=== PATIENT | female | born 1990 | race Caucasian/White ===

== ENCOUNTER 2016-03-17 06:02 | Observation (INO) | payer OTHER ==
[~2016-03-17 06:02] MED LIST: Buffered Lidocaine 1% SYR 3ML* 3 ML/SYR SYRINGE INTRADERM ONE; Famotidine IV* 10 MG/ML 2 ML (20 mg) IV ONE; Morphine INJ* 2 MG/ML 1 ML CARPUJECT IV PRN; PROCHLORPERAZINE INJ 5 MG/ML 2 ML VIAL IV PRN; fentaNYL* 50 MCG/ML 2 ML VIAL (100 MCG VIAL) IV PRN; oxyCODONE/Acetamin 5/325 MG* TAB PO PRN
[2016-03-17] MEDS ORDERED: Famotidine IV* 10 MG/ML 2 ML (20 mg) ONE (06:09)
[2016-03-17] MEDS ORDERED: Clindamycin 900 MG IVPREMIX(* 900 MG/50 ML SDV IV ONE (06:09)
[2016-03-17] MEDS ORDERED: Buffered Lidocaine 1% SYR 3ML* 3 ML/SYR SYRINGE ONE (06:10)
[2016-03-17] MEDS ORDERED: Thrombin 5,000 UNITS* 1 APPLIC KIT - topical use - TOPICAL ONE (07:11)
[2016-03-17] MEDS ORDERED: Lidocain 1% EPI 1:100,000 * 30 ML MDV ONE (07:11)
[2016-03-17] MEDS ORDERED: Bacitracin IV* 50,000 UNITS INJ ONE (07:11)
[2016-03-17] MEDS ORDERED: Atracurium* 10 MG/ML 10 ML VIAL ONE (07:20)
[2016-03-17] MEDS ORDERED: fentaNYL* 50 MCG/ML 5 ML VIAL (250 MCG VIAL) ONE (07:20)
[2016-03-17] MEDS ORDERED: KETAMINE HCL* 50 MG/ML 10 ML VIAL ONE (07:20)
[2016-03-17] MEDS ORDERED: Midazolam* 1 MG/ML 5 ML VIAL (5 MG) ONE (07:20)
[2016-03-17] MEDS ORDERED: Propofol* 10 MG/ML 20 ML BTL IV PUSH ONE (07:59)
[2016-03-17] MEDS ORDERED: PROCHLORPERAZINE INJ 5 MG/ML 2 ML VIAL ONE (07:59)
[2016-03-17] MEDS ORDERED: Neostigmine Methylsulfate* 2 MG/2 ML SYRINGE ONE (07:59)
[2016-03-17] MEDS ORDERED: Glycopyrrolate IV* 0.2 MG/ML 1 ML VIAL ONE (07:59)
[2016-03-17] MEDS ORDERED: Dexamethasone IV* 4 MG/ML 1 ML (4 MG) ONE (07:59)
[2016-03-17] MEDS ORDERED: Ondansetron INJ* 2 MG/ML VIAL ONE (07:59)
[2016-03-17] MEDS ORDERED: Phenylephrine IV* 40 MCG/ML 10 ML SYRINGE ONE (08:00)
[2016-03-17] MEDS ORDERED: Lidocaine 2% PF* 10 ML AMP ONE (08:00)
[2016-03-17] MEDS ORDERED: EPHEDrine (Pressors)* 50 MG/ML VIAL ONE (08:10)
[2016-03-17] MEDS ORDERED: Magnesium Hydroxide LIQ* 30 ML UDC PO PRN (08:39)
[2016-03-17] MEDS ORDERED: Ondansetron INJ* 2 MG/ML VIAL IV PRN (08:39)
[2016-03-17] MEDS ORDERED: Acetaminophen TAB* 325 MG PO PRN (08:39)
[2016-03-17] MEDS ORDERED: oxyCODONE/Acetamin 5/325 MG* TAB ONE ×2 (09:22)
--- NOTE | 2016-03-17 10:33 | RAD ---
HISTORY: Lumbar discectomy COMPARISONS: MRI dated February 25, 2016 VIEWS: 1 , single lateral view of the lumbar spine performed intraoperatively for localization during spinal surgery FINDINGS: A single portable crosstable film performed at 7:08 AM demonstrates a metallic forceps opposite of L4-L5 counting from L5 as the last lumbar type vertebral body. IMPRESSION: LIMITED PORTABLE VIEW OF THE LUMBAR SPINE FOR LOCALIZATION DURING SPINAL SURGERY
[2016-03-17] MEDS: HYDROcodone/ACETAMIN 5-325 MG* 1 TAB PO PRN ×2 (12:22→20:48)
[2016-03-18] MEDS: HYDROcodone/ACETAMIN 5-325 MG* 1 TAB PO PRN (04:23)
--- NOTE | 2016-03-18 07:52 | PN ---
Progress Note - Progress Note SOAP: Subjective: [This patient is s/p lumbar discectomy L4-5 on the left POD #1. She is feeling well. Preoperative pain in the left lower extremity is improving. She reports continued weakness of the left foot. She is ambulating independently. She is eating, drinking and voiding without difficulty. No headache. Pain is well controlled.] Objective: [ Vital Signs: Temp Pulse Resp BP Pulse Ox 97.9 F 84 18 122/58 98 03/18/16 04:18 03/18/16 04:18 03/18/16 06:23 03/18/16 04:18 03/18/16 04:18 General: Alert and oriented. Neuro: Decreased strength of left foot; unchanges from pre-op. Sensory intact. Extremities: Full ROM. ] Assessment: [This patient is following a satisfactory post-operative course after lumbar discectomy L4-5 on the left. ] Plan: [1. Discharge home today. 2. Discharge instructions including wound care and activity level were discussed with the patient. ]
[2016-03-18 08:01] VITALS: BP 119/61
--- NOTE | 2016-03-18 10:30 | OP ---
DATE OF OPERATION: 03/17/16 - ROOM #351 DATE OF : 88 SURGEON: Fletcher Hunt MD FIRE EXTINGUISHER TECHNICIAN: CHALO Streeter ANESTHESIOLOGIST: Hilario Preston MD ANESTHESIA: General. PRE-OP DIAGNOSIS: Herniated nucleus pulposus, L4-5, on the left. POST-OP DIAGNOSIS: Herniated nucleus pulposus, L4-5, on the left. OPERATIVE PROCEDURE: Lumbar diskectomy, L4-5, on the left with microdissection. DESCRIPTION OF OPERATION: After satisfactory general anesthesia was obtained, the patient was placed on the operating room table in the prone position with the chest supported on the Medardo frame and the back slightly flexed. The lumbar region was then clipped, prepped, and draped in a sterile manner for lumbar laminectomy and a skin incision outlined from L4 to L5. This incision was infiltrated with 1% Xylocaine with epinephrine after which it was turned down sharply to the level of the lumbar fascia. The fascia was divided along the spinous processes of L4 and L5 and the paraspinal musculature stripped away from these posterior elements using the periosteal elevator and monopolar cautery. An intraoperative x-ray was obtained verifying proper interspace localization after which a partial hemilaminectomy was carried out by removing the inferior aspect of the L4 lamina and medial aspect of the facet complex, utilizing a combination of the Midas Adelfo drill and Kerrison rongeurs. This was carried inferiorly until the L5 nerve root could be seen exiting the foramen. At this point of the procedure, the operating microscope was brought into the field and the remainder of the procedure done under microscopic visualization. Projecting beneath the dura was a large subcapsular disk extrusion. The opening in the posterior longitudinal ligament was enlarged and one very large fragment was removed from beneath the dura. The disk space itself was then cleared of any loose disk material using pituitary forceps and curettes. At the conclusion of the decompression, the L5 nerve root was noted to be free in its course. After assuring adequate hemostasis, the wound was thoroughly irrigated after which the fascia was reapproximated with 0 Vicryl suture. The subcutaneous tissue was closed with 3-0 Vicryl suture and the skin closed with skin clips. The estimated blood loss was less than 50 cc and the final sponge, padding, and needle counts were correct. The patient was taken to the recovery room extubated and in stable condition. [id number]/[facility] #: [id number] [facility]
--- NOTE | 2016-03-18 23:47 | DS ---
DISCHARGE SUMMARY: DATE OF ADMISSION: 03/17/16 DATE OF DISCHARGE: 03/18/16 DISCHARGE DIAGNOSIS: Herniated nucleus pulposus, L4-5 on the left. SPECIAL PROCEDURE: Lumbar diskectomy, L4-5 on the left. HOSPITAL COURSE: This 25-year-old female was seen in office with significant signs and symptoms of lumbar radiculopathy on the left. She failed to improve with conservative treatment and was admitted at this time for an elective surgical intervention. On the day of admission, she was taken to surgery, where under general anesthesia, a lumbar diskectomy at L4-5 on the left operation was carried out. Postoperatively, she was feeling well. She was ambulating independently. She was eating, drinking, and voiding without difficulty. Preoperative symptoms were improving. Pain was well controlled with oral pain medications. DISCHARGE DISPOSITION: On the first postoperative day, she was discharged home to the care of her family. DISCHARGE INSTRUCTIONS: Discharge instructions including wound care and activity level were provided. DISCHARGE MEDICATIONS: Include Enterprise 5/325 mg 2 tablets every 4 hours as needed for pain. FOLLOWUP: She will be seen in office in 7 to 10 days for a followup and staple removal. CHALO BECKER [id number]/[facility] #: [id number] LINO
== END 2016-03-18 10:00 | disposition home or self-care (01) ==
LOC: OR 06:02 → SSU 08:39
PROVIDERS: ADMIT Neurological Surgery; ATTEND Neurological Surgery
PROC: 01NB0ZZ Release Lumbar Nerve, Open Approach (ICD-10-PCS; principal; 2016-03-17 07:45)
DX: M51.16 Intervertebral disc disorders with radiculopathy, lumbar region (principal); Z88.0 Allergy status to penicillin; Z79.899 Other long term (current) drug therapy
CPT/HCPCS: 72100; 88304; A9270-GY; G0378; J0780; J1100; J2001; J2250; J2405; J2704; J3010

== ENCOUNTER 2016-12-13 10:00 | Emergency (ER) | payer BC, OTHER ==
[2016-12-13 11:09] VITALS: BP 152/94
--- NOTE | 2016-12-13 11:13 | UC ---
Back Pain HPI - HPI Summary HPI Summary: 26 YEAR OLD FEMALE PRESENTS WITH COMPLAINS OF LOWER BACK PAIN WITH NO TRAUMA. - History of Current Complaint Chief Complaint: UCGeneralIllness Stated Complaint: LOWER BACK PAIN Time Seen by Provider: 12/13/16 11:11 Hx Obtained From: Patient Hx Last Menstrual Period: 11/15/16 Onset/Duration: Sudden Onset Severity Initially: Moderate Severity Currently: Moderate Pain Scale Used: 0-10 Numeric - 5 Character: Sharp Aggravating Factor(s): Movement Alleviating Factor(s): Rest Associated Signs And Symptoms: Positive: Negative - Allergies/Home Medications Allergies/Adverse Reactions: Allergies Allergy/AdvReac Type Severity Reaction Status Date / Time Amoxicillin Allergy Intermediate Rash Verified 12/13/16 11:09 PMH/Surg Hx/FS Hx/Imm Hx Previously Healthy: Yes - Surgical History Surgical History: None Surgery Procedure, Year, and Place: 03/2016- Repair Rutured Disc in low back - Family History Known Family History: Positive: None Negative: Hypertension, Diabetes Family History: no cardiovascular issues in family lineage - Social History Alcohol Use: Occasionally Alcohol Amount: Monthly Substance Use Type: None Smoking Status (MU): Never Smoked Tobacco Have You Smoked in the Last Year: No - Immunization History Most Recent Influenza Vaccination: 12/10/16 Review of Systems Constitutional: Negative Skin: Negative Eyes: Negative ENT: Negative Respiratory: Negative Cardiovascular: Negative Gastrointestinal: Negative Genitourinary: Negative Motor: Negative Neurovascular: Negative Musculoskeletal: Negative Neurological: Negative Psychological: Negative All Other Systems Reviewed And Are Negative: Yes Physical Exam Triage Information Reviewed: Yes Vital Signs: Initial Vital Signs Temp 35.8 C 12/13/16 11:02 Pulse 83 12/13/16 11:02 Resp 18 12/13/16 11:02 BP 152/94 12/13/16 11:02 Pulse Ox 100 12/13/16 11:02 Vital Signs Reviewed: Yes Eye Exam: Normal ENT Exam: Normal Dental Exam: Normal Neck exam: Normal Neck: Positive: 1 Respiratory Exam: Normal Cardiovascular Exam: Normal Abdominal Exam: Normal Musculoskeletal: Positive: Other: - LOWER BACK PAIN Neurological Exam: Normal Psychological Exam: Normal Skin Exam: Normal Back Pain Course/Dx - Differential Dx/Diagnosis Provider Diagnoses: LOWER SI PAIN. LOWER BACK PAIN Discharge - Discharge Plan Condition: Stable Disposition: HOME Prescriptions: Sulfamethox/Trimethoprim DS* [Bactrim DS 800/160 TAB*] 1 tab PO BID #10 tab Patient Education Materials: Urinary Tract Infection in Women (ED), Back Pain ( ED) Referrals: No Primary Care Phys,NOPCP [Primary Care Provider] -
== END 2016-12-13 11:40 | disposition home or self-care (01) ==
LOC: UCEAST 10:00
DX: M54.40 Lumbago with sciatica, unspecified side (principal); Z32.02 Encounter for pregnancy test, result negative; Z88.3 Allergy status to other anti-infective agents
CPT/HCPCS: 81003; 84702; 87086; 99212; G0463

== ENCOUNTER → 2018-03-31 16:23 | Day surgery (SDC) | payer BC ==
--- NOTE | 2018-03-31 21:44 | PRO ---
LUMBAR PUNCTURE PROCEDURE NOTE: DATE OF PROCEDURE: 03/31/18 - SDS PREOPERATIVE DIAGNOSIS: Pseudotumor cerebri. POSTOPERATIVE DIAGNOSIS: Pseudotumor cerebri. INDICATION: Diagnostic and therapeutic. DESCRIPTION OF PROCEDURE: Informed consent was obtained. Time-out was performed by the bedside nurse, Rosy Dan, at 1950. A female diversional therapist was present which included Nazanin's friend as well as the bedside nurse, Ms. Dan. Risks of the procedure were discussed including infection, bleeding, pain and headache. Written consent was obtained. Under sterile condition, the patient was positioned in the left lateral decubitus position in a semi- position. Betadine solution and sterile drapes were utilized. A 22-gauge 3.5-inch spinal needle was inserted at L3- L4 interspace. FINDINGS: A 20 cc of clear fluid was obtained. Opening pressure was 37 cm H20 pressure. Closing pressure was 18 cm H20 pressure. COMPLICATIONS: None. CONDITION: Good. PLAN: Obtain CSF analysis for cell count, differential, cryptococcal antigen, protein, and glucose. The patient was started on acetazolamide 250 mg twice daily. [id number]/[facility] #: [id number] [facility]
== END | disposition home or self-care (01) ==
LOC: OR 16:23
PROVIDERS: ATTEND Psychiatry & Neurology Neurology with Special Qualifications in Child Neurology
DX: G93.2 Benign intracranial hypertension (principal)

== ENCOUNTER 2018-03-31 16:52 | Emergency (ER) | payer BC ==
--- NOTE | 2018-03-31 17:09 | ED ---
Headache - HPI Summary HPI Summary: This patient is a 27 year old female who is presenting to the emergency department after being sent by Dr. Begum for a spinal tap. The patient states she has a headache that began 03-22-18 that she rates 8/10. She also c/o blurred vision. She denies cough, fever, cold sx. She had an MRI and non contrast MRV as an outpatient and she was sent in for a spinal tap to manage the next step. The plan is to go home if her pressure is normal with steroid and if it is not admit with further work up. Dr. Almazan saw the patient on arrival - History Of Current Complaint Chief Complaint: EDHeadache Stated Complaint: HEADACHE Time Seen by Provider: 03/31/18 16:55 Hx Obtained From: Patient Hx Last Menstrual Period: 11/15/16 Onset/Duration: Still Present Initially Headache Was: Initial Pain Scale(0-10)= - 8 Currently Pain Is: Current Pain Scale(0-10)= - 8 Timing: Constant Associated Signs And Symptoms: Negative - fever and cold sx, Other (Noted In Comments) - blurred vision - Allergies/Home Medications Allergies/Adverse Reactions: Allergies Allergy/AdvReac Type Severity Reaction Status Date / Time amoxicillin Allergy Intermediate Rash Verified 03/31/18 16:53 Home Medications: Home Medications Propranolol TAB* [Inderal TAB*] 20 mg PO BEDTIME 03/31/18 [History Confirmed ] busPIRone TAB* [Buspar TAB*] 10 mg PO TID PRN 03/31/18 [History Confirmed ] PMH/Surg Hx/FS Hx/Imm Hx Endocrine/Hematology History: Denies: Hx Diabetes Cardiovascular History: Reports: Hx Hypertension Denies: Hx Coronary Artery Disease, Hx Pacemaker/ICD Respiratory History: Denies: Hx Asthma History: Reports: Hx Kidney Infection - HX OF - NONE RECENTLY Sensory History: Reports: Hx Contacts or Glasses - CONTACTS, INSTRUCTED TO WEAR GLASSES DAY OF SURGERY Denies: Hx Hearing Aid Opthamlomology History: Reports: Hx Contacts or Glasses - CONTACTS, INSTRUCTED TO WEAR GLASSES DAY OF SURGERY Psychiatric History: Denies: Hx Oppositional [place] Disorder, Hx Panic Disorder - Surgical History Surgery Procedure, Year, and Place: 03/2016- Repair Rutured Disc in low back Infectious Disease History: No Infectious Disease History: Denies: Traveled Outside the [place] in Last 30 Days - Family History Known Family History: Negative: Hypertension, Diabetes Family History: no cardiovascular issues in family lineage - Social History Alcohol Use: Occasionally Alcohol Amount: Monthly Substance Use Type: Reports: None Smoking Status (MU): Never Smoked Tobacco Have You Smoked in the Last Year: No Review of Systems Constitutional: Negative - cold sx Negative: Fever Positive: Blurred Vision Negative: Cough Positive: Headache All Other Systems Reviewed And Are Negative: Yes Physical Exam - Summary Physical Exam Summary: Appearance: The patient is well-nourished in no acute distress and in no acute pain. Skin: The skin is warm and dry and skin color reflects adequate perfusion. HEENT: The head is normocephalic and atraumatic. The pupils are equal and reactive. The conjunctivae are clear and without drainage. Nares are patent and without drainage. Mouth reveals moist mucous membranes and the throat is without erythema and exudate. The external ears are intact. The ear canals are patent and without drainage. The tympanic membranes are intact. Neck: The neck is supple with full range of motion and non-tender. There are no carotid bruits. There is no neck vein distension. Respiratory: Chest is non-tender. Lungs are clear to auscultation and breath sounds are symmetrical and equal. Cardiovascular: Heart is regular rate and rhythm. There is no murmur or rub auscultated. There is no peripheral edema and pulses are symmetrical and equal. Abdomen: The abdomen is soft and non-tender. There are normal bowel sounds heard in all four quadrants and there is no organomegaly palpated. Musculoskeletal: There is no back tenderness noted. Extremities are non-tender with full range of motion. There is good capillary refill. There is no peripheral edema or calf tenderness elicited. Neurological: Patient is alert and oriented to person, place and time. The patient has symmetrical motor strength in all four extremities. Cranial nerves are grossly intact. Deep tendon reflexes are symmetrical and equal in all four extremities. Psychiatric: The patient has an appropriate affect and does not exhibit any anxiety or depression. Triage Information Reviewed: Yes Vital Signs On Initial Exam: Initial Vitals Temp Pulse Resp BP Pulse Ox 97.4 F 87 16 184/116 96 03/31/18 16:53 03/31/18 16:53 03/31/18 16:53 03/31/18 16:53 03/31/18 16:53 Vital Signs Reviewed: Yes Diagnostics - Vital Signs Vital Signs Temp Pulse Resp BP Pulse Ox 03/31/18 16:58 151/90 03/31/18 16:53 97.4 F 87 16 184/116 96 - Laboratory Result Diagrams: 03/31/18 16:31 03/31/18 16:31 Lab Statement: Any lab studies that have been ordered have been reviewed, and results considered in the medical decision making process. Headache Course/Dx - Diagnoses Provider Diagnoses: Idiopathic intracranial hypertension Discharge - Sign-Out/Discharge Documenting (check all that apply): Patient Departure - Discharge Plan Condition: Good Disposition: HOME Patient Education Materials: Idiopathic Intracranial Hypertension (ED) Referrals: Chirag Almazan MD [Medical Doctor] - Additional Instructions: Take the medication Dr. Almazan prescribed as directed and followup with him per his instructions. - Billing Disposition and Condition Condition: GOOD Disposition: Home - Attestation Statements Document Initiated by Scribe: Yes Documenting Scribe: Orion Gibbs Provider For Whom Koby is Documenting (Include Credential): Deniz Oliver MD Scribe Attestation: Orion Garcia , scribed for Deniz Oliver MD on 04/01/18 at 1034. Scribe Documentation Reviewed: Yes Provider Attestation: The documentation as recorded by the Orion amaro accurately reflects the service I personally performed and the decisions made by Deniz danielle MD Status of Scribe Document: Viewed
--- OUTSIDE RECORDS SUMMARY | 2018-03-31 17:09 | XMS REPORT | Continuity of Care Document ---
:1990 External Reference #:[id number] Author Name Marquez Vick M.D. Address [address] [place] [address] Care Team Providers Name Role Phone Deana Gage M.D. Primary Care Physician Unavailable Payers Type Date Identification Numbers Payment Provider Subscriber Policy Number: [id number] [facility] Nazanin Medley PayID: [id number] [address] [address] [place] [address] Policy Number: [id number] [employer] Nazanin Medley PayID: [id number] [address] [place] [address] Advance Directives Description No Information Available Problems Date Description Provider Status Onset: Essential hypertension Active Onset: Anxiety Active Onset: Seasonal allergy Active Onset: 03/30/2018 Visual field defect Marquez Vick M.D. Active Onset: 03/30/2018 Other migraine, intractable, Marquez Vick M.D. Active without status migrainosus Onset: 01/03/2018 Visual disturbance Delfina Max O.D. Active Onset: 01/01/2018 Optic disc edema Ora Wei O.D. 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 ETOH Use Rarely consumes alcohol Tobacco Use Start: Unknown Patient has never smoked Recreational Drug Use Denies Drug Use Smoking Status Reviewed: 03/30/18 Patient has never smoked Allergies, Adverse Reactions, Alerts Date Description Reaction Status Severity Comments 01/01/2018 Amoxicillin Active Medications Medication Date Status Form Strength Qnty SIG Indications Ordering Provider Propranolol HCL 00/0 Active Tablets 20mg every Unknown 000 night Fluoxetine HCL /0 Active Capsules 20mg every Unknown (PMDD) 000 night Hydroxyzine HCL 000 Active Tablets 25mg as needed Unknown 000 Multivitamin 00000 Active Tablets daily Unknown Adult 000 Immunizations Description No Information Available Vital Signs Description No Information Available Results Description No Information Available Procedures Date Code Description Status 01/03/2018 46010 Scanning Computerized Ophthalmic Diagnostic Imag Posterior Completed Seg On 01/03/2018 43035 Visual Field Exam Extended Completed 01/01/2018 98522 New Patient Comprehensive Exam Completed Encounters Type Date Location Provider Dx Diagnosis Office Visit 01/03/2018 Delfina Hughes H53.8 Other visual 11:20a , pc Lali Max disturbances Plan of Treatment 03/30/2018 - Marquez Vick M.D.H47.10 Unspecified papilledemaNew Xrays:Mra or MRV Head W/O Contrast, Ordered: 03/30/18MRI Brain W/O Contrast, Ordered: Comments:Smoking can increase the risk of developing or worsening any eye related disease, as well as affect your overall health. If you are a smoker, we strongly recommend that you quit.If you are not a smoker, we strongly recommend that you do not start. I WILL ORDER AN MRI TO LOOK INTO YOUR VOCNSVWDW26.819 Other migraine, intractable, without status [id number] Other localized visual field defect, bilateralComments:You have a visual field defect in both eyes. Further testing is often required to properly diagnose the cause of this. Please follow all of Dr. Vick's instructions and keep all follow up appointments.
--- OUTSIDE RECORDS SUMMARY | 2018-03-31 17:09 | XMS REPORT | Continuity of Care Document ---
:1990 External Reference #:[id number] Author Name Deana Gage M.D. Address [address] [place] [address] Care Team Providers Name Role Phone Deana Gage M.D. Care Team Information Soa Engineer Unavailable Deana Gage M.D. Primary Care Physician Unavailable Payers Type Date Identification Numbers Payment Provider Subscriber Effective: Policy Number: [id number] /BS Of [employer]ICE Medley 2016 PayID: [id number] [place] [id number] Advance Directives Description No Information Available Problems Date Description Provider Status Onset: 03/03/2017 Moderate major depression, single Deana Gage M.D. Active episode Onset: 03/15/2017 Obesity Deana Gage M.D. Active Onset: 06/02/2017 Essential hypertension Deana Gage M.D. Active Onset: 06/02/2017 Liver function tests abnormal Deana Gage M.D. Active Onset: 03/02/2018 Impaired fasting glycaemia Deana Gage M.D. Active Onset: 03/15/2017 Elevated blood-pressure reading without Deana Gage M.D. Inactive diagnosis of hypertension Inactive: 06/02/2017 Onset: 11/18/2017 Acute sinusitis Christopher Yi M.D. Resolved Resolved: 03/07/2018 Onset: 11/18/2017 Allergic rhinitis Christopher Yi M.D. Resolved Resolved: 03/07/2018 Family History Date Family Member(s) Problem(s) Comments Father Hyperlipidemia Father Gastroesophageal Reflux Disease (GERD) Mother Irritable Bowel Syndrome First Sister Lyme Disease Paternal Grandfather Lung Cancer Paternal Grandmother Breast Cancer Paternal Grandmother [place] Paternal Grandmother Fatty liver Maternal Grandfather Asthma Maternal Grandmother Breast Cancer Social History Type Date Description Comments Sex Unknown Marital Status Single Lives With Alone Occupation [employer] Tobacco Use Start: Unknown Never Smoked Cigarettes Smoking Status Reviewed: 10/05/17 Never Smoked Cigarettes ETOH Use Social Alcohol Exercise Type/Frequency Does not exercise Allergies, Adverse Reactions, Alerts Date Description Reaction Status Severity Comments 03/03/2017 Amoxicillin Active hives Medications Medication Date Status Form Strength Qnty SIG Indications Ordering Provider Acetaminophen-Code 03/29 Active Tablets 300-30mg 30tab 1-2 tab by R5Juany Leblanc ine #3 s mouth Evangeline, every 6 M.D. hours as needed Rizatriptan 03/29 Active Tablets 10mg 15tab 1 tab by R51 Deana Benzoate /2018 Dispers s mouth at Evangeline, onset M.D. migraine can repeat 2 hours later monthly max 15 Buspirone HCL 03/02 Active Tablets 10mg 180ta 1 tab bid bs Evangeline, M.D. Bupropion HCL ER 02/07 Active Tablets 100mg 90tab take one () ER 12HR s by mouth Evangeline, once daily M.D. Propranolol HCL 12/28 Active Tablets 20mg 90tab 1 tab by I10 s mouth Evangeline, every day M.D. Montelukast Sodium 11/18 Active Tablets 10mg 30tab 1 by mouth J30.2 Christopher T. s every day Midura, at for M.D. allergies Vitamin D 00 Active Tablets 2000Unit 1 by mouth Unknown /0000 every day Buspirone HCL 02/07 Hx Tablets 5mg 90tab 1 tab by s mouth Evangeline, - three M.D. 03/02 times day as needed Fluoxetine HCL 02/07 Hx Capsules 10mg 30cap 4 tabs x 3 F32.1 s days, then Evangeline, - 3 tabs x 3 M.D. 03/02 days, 2 tabs x 3 days then 1 tab x 3 days then stop Fluoxetine HCL 12/28 Hx Capsules 20mg 90cap 1 by mouth F32.1 s every day Evangeline, - M.D. 02/07 Fluoxetine HCL 12/14 Hx Capsules 10mg 30cap 1 by mouth F32.1 s every day Evangeline, - M.D. 12/28 Hydroxyzine HCL 12/14 Hx Tablets 25mg 60tab 1-2 tabs F32.1 s at bedtime Evangeline, - as needed M.D. 02/07 Levofloxacin 11/18 Hx Tablets 500mg 10tab 1 by mouth J01.90 Christopher T. s every day Kd, - M.D. 12/14 Work Note 11/18 Hx seen today Christopher T. for Kd, - medical M.D. 12/14 [facility] and should not return to work today or tomorrow. 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 09/01 twice a day Lisinopril 05/15 Hx Tablets 20mg 30tab 1 by mouth I10 s every day Evangeline, - M.D. 09/01 Amlodipine 05/05 Hx Tablets 5mg 30tab 1 by mouth Deana Besylate s every day Evangeline, - M.D. 05/15 Bupropion HCL ER 05/03 Hx Tablets 150mg 30tab take 1 Ashely (XL) ER 24HR s tablet by [facility], - mouth Afnp-C 11/04 every Bupropion HCL ER 04/20 Hx Tablets 300mg 90tab 1 by mouth F32.1 Deana (XL) ER 24HR s every day Evangeline, - M.D. 05/03 Amlodipine 04/15 Hx Tablets 10mg 30tab 1 by mouth Deana Besylate s every day Evangeline, - M.D. 04/19 Hydrochlorothiazid 03/15 Hx Tablets 12.5mg 90tab 1 by mouth Deana e s every day Evangeline, - M.D. 04/15 Bupropion HCL ER 03/03 Hx Tablets 150mg 30tab 1 by mouth F32.1 Deana (XL) ER 24HR s every day Evangeline, - M.D. 04/20 Vitamin B12 00/00 Hx Tablets 1000mcg 1 by mouth Unknown /0000 ER every day - 04/19 Cranberry 00 Hx Tablets 450mg 1 tab by Unknown /0000 mouth - Daily 10/05 Medications Administered in Office Medication Date Status Form Strength Qnty SIG Indications Ordering Provider Brief Administered Injection Deana Emotional/Beha 017 lucy Gage M.D. W/ Scoring Doc Per Standard Inst Immunizations Description No Information Available Vital Signs Date Vital Result Comment 03/29/2018 11:08am BP Systolic 140 mmHg BP Diastolic 90 mmHg Heart Rate 68 /min Body Temperature 97.7 F Respiratory Rate 16 /min 03/02/2018 11:03am BP Systolic 150 mmHg BP Diastolic 82 mmHg BP Systolic Recheck 130 mmHg BP Diastolic Recheck 80 mmHg Heart Rate 64 /min Body Temperature 98.1 F Respiratory Rate 16 /min Weight 301.00 lb 12/14/2017 8:04am BP Systolic 148 mmHg BP Diastolic 98 mmHg Heart Rate 68 /min Body Temperature 98.3 F Respiratory Rate 16 /min Weight 293.00 lb 11/18/2017 10:34am BP Systolic 124 mmHg BP Diastolic 86 mmHg Heart Rate 64 /min Body Temperature 98.3 F Respiratory Rate 16 /min Height 68 inches 5'8" Weight 284.00 lb BMI (Body Mass Index) 43.2 kg/m2 10/05/2017 9:02am BP Systolic 128 mmHg BP Diastolic 88 mmHg Heart Rate 66 /min Body Temperature 97.9 F Respiratory Rate 18 /min Height 68 inches 5'8" Weight 290.00 lb BMI (Body Mass Index) 44.1 kg/m2 09/02/2017 1:15pm BP Systolic 174 mmHg BP Diastolic 102 mmHg Heart Rate 78 /min Body Temperature 97.9 F Height 68 inches 5'8" Weight 299.00 lb BMI (Body Mass Index) 45.5 kg/m2 06/02/2017 8:19am BP Systolic 150 mmHg BP Diastolic 90 mmHg BP Systolic Recheck 150 mmHg BP Diastolic Recheck 88 mmHg Heart Rate 72 /min Respiratory Rate 16 /min Height 68 inches 5'8" 05/15/2017 10:40am BP Systolic 170 mmHg BP Diastolic 108 mmHg Heart Rate 102 /min Body Temperature 97.9 F Respiratory Rate 16 /min Height 68 inches 5'8" Weight 289.12 lb BMI (Body Mass Index) 44.0 kg/m2 04/20/2017 3:52pm BP Systolic 158 mmHg BP Diastolic 108 mmHg Heart Rate 96 /min Body Temperature 97.7 F Height 68 inches 5'8" Weight 296.00 lb BMI (Body Mass Index) 45.0 kg/m2 03/03/2017 3:59pm BP Systolic 170 mmHg BP Diastolic 100 mmHg Heart Rate 80 /min Body Temperature 97.9 F Respiratory Rate 16 /min Height 68 inches 5'8" Weight 304.00 lb BMI (Body Mass Index) 46.2 kg/m2 Results Test Date Facility Test Result H/L Range Note Comprehensive Metabolic 03/03/2018 [facility] ([facility]) Sodium 142 mEq/L 134-149 Prof Potassium 4.9 mEq/L 3.6-5.5 Chloride 107 mEq/L 94-112 Carbon Dioxide 22 mEq/L 21-32 Glucose 106 mg/dL High 70-105 BUN 9 mg/dL 6-26 Creatinine 0.7 mg/dL 0.6-1.4 BUN/Creat Ratio 12.9 CALC 8.0-36.0 Calcium 8.7 mg/dL 8.6-10.2 Total Protein 7.3 g/dL 6.4-8.3 Albumin 4.3 g/dL 3.8-5.5 Globulin 3.0 g/dL 2.0-4.8 A/G Ratio 1.4 CALC 0.6-2.3 Alk. Phosphatase 46 U/L 30-110 Alt (SGPT) 34 U/L 7-35 Ast (Sgot) 28 U/L 5-34 Total Bilirubin 0.2 mg/dL 0.2-1.3 GFR Non- >60 ml/min/1.73m^ >=60 GFR >60 ml/min/1.73m^ >=60 Lipid Profile 03/03/2018 [facility] ([facility]) Cholesterol 216 mg/dL High 120-200 Triglycerides 243 mg/dL High 30-200 HDL Cholesterol 51 mg/dL 30-85 LDL (Calculated) 116 CALC 0-129 VLDL Cholesterol 49 mg/dL 0-50 HDL Risk Factor 4.2 CALC 0.0-4.4 Laboratory test 03/03/2018 [facility] ([facility]) Free T4 1.00 ng/dL 0.75- 1.54 finding TSH 1.46 mIU/L 0.50-6.00 Vitamin B-12 721 pg/mL 230-1050 Vitamin D25 22 Low 30-100 CBC Electronic a 03/03/2018 [facility] (a) WBC 7.6 x10^3/UL 4.0- 10.0 RBC 4.38 x10^6/UL 3.93-6.00 HGB 13.0 g/dL 12.0-17.0 HCT 38 % 35-50 MCV 87.7 fL 80.0-95.0 MCH 29.7 pg 25.6-32.2 MCHC 33.9 g/dL 32.2-36.0 RDW-CV 12.6 % 11.6-14.4 PLT 256 x10^3/UL 163-400 MPV 9.9 fL 9.4-12.4 Mat# 4.11 x10^3/UL 1.56-6.13 Lymph# 2.11 x10^3/UL 1.18-3.74 [place]# 0.46 x10^3/UL 0.24-0.82 Eos # 0.8 x10^3/UL High 0.0-0.5 Baso # 0.06 x10^3/UL 0.01-0.08 Mat% 54.3 % 34.0-70.0 Lymph % 27.9 % 20.0-52.0 [place]% 6.1 % 5.0-12.0 Eos% 10.0 % High 0.7-7.0 Baso% 0.8 % 0.1-1.2 Laboratory test 03/03/2018 [facility] Hemoglobin A1c 6.2 % High 4.1- 5.7 finding (607)- - ([facility]) Laboratory test 12/09/2017 [facility] Hemoglobin A1c 5.3 % % 4.1- 5.7 finding (607)- - (a) Glucose Serum 119 High 70-105 Hepatitis Panel, 09/21/2017 [facility] Hep A Ab, Negative Negative [address] [place] [address] (607)- - HBsAg Screen Negative Negative Hep B Core Ab, IgM Negative Negative Hep C Virus Ab 0.1 s/coratio 0.0-0.9 2 Lipid Profile 09/21/2017 [facility] (a) Cholesterol 221 mg/dL High 120-200 Triglycerides 193 mg/dL 30-200 HDL Cholesterol 53 mg/dL 30-85 LDL (Calculated) 129 CALC 0-129 VLDL Cholesterol 39 mg/dL 0-50 HDL Risk Factor 4.2 CALC 0.0-4.4 Laboratory test 09/21/2017 [facility] Prolactin 5.9 ng/mL 4.8-23.3 finding [address] [place] [address] (607)- - LDH 241 IU/L High 119-226 Laboratory test 09/21/2017 [facility] Monospot negative finding (607)- - ([facility]) Comprehensive 09/21/2017 [facility] ([facility]) Sodium 137 mEq/L 134-14 Metabolic Prof 9 Potassium 4.6 mEq/L 3.6-5.5 Chloride 105 mEq/L 94-112 Carbon Dioxide 23 mEq/L 21-32 Glucose 123 mg/dL High 70-105 BUN 12 mg/dL 6-26 Creatinine 0.7 mg/dL 0.6-1.4 BUN/Creat Ratio 17.1 CALC 8.0-36.0 Calcium 9.4 mg/dL 8.6-10.2 Total Protein 8.0 g/dL 6.4-8.3 Albumin 4.5 g/dL 3.8-5.5 Globulin 3.5 g/dL 2.0-4.8 A/G Ratio 1.3 CALC 0.6-2.3 Alk. Phosphatase 48 U/L 30-110 Alt (SGPT) 115 U/L High 7-35 Ast (Sgot) 65 U/L High 5-34 Total Bilirubin 0.5 mg/dL 0.2-1.3 GFR Non- >60 ml/min/1.73m^ >=60 GFR >60 ml/min/1.73m^ >=60 Comprehensive Metabolic 09/02/2017 [facility] ([facility]) Sodium 134 mEq/L 134-149 Prof Potassium 3.7 mEq/L 3.6-5.5 Chloride 97 mEq/L 94-112 Carbon Dioxide 27 mEq/L 21-32 Glucose 108 mg/dL High 70-105 BUN 7 mg/dL 6-26 Creatinine 0.7 mg/dL 0.6-1.4 BUN/Creat Ratio 10.0 CALC 8.0-36.0 Calcium 9.1 mg/dL 8.6-10.2 Total Protein 7.3 g/dL 6.4-8.3 Albumin 4.5 g/dL 3.8-5.5 Globulin 2.8 g/dL 2.0-4.8 A/G Ratio 1.6 CALC 0.6-2.3 Alk. Phosphatase 48 U/L 30-110 Alt (SGPT) 126 U/L High 7-35 Ast (Sgot) 95 U/L High 5-34 Total Bilirubin 0.4 mg/dL 0.2-1.3 GFR Non- >60 ml/min/1.73m^ >=60 GFR >60 ml/min/1.73m^ >=60 Laboratory test 09/02/2017 T[facility] Sarah ([facility]) Vitamin B-12 765 pg/mL 230-1050 finding TSH 2.89 mIU/L 0.50-6.00 Free T4 0.97 ng/dL 0.75-1.54 CBC Electronic [facility] 09/02/2017 [facility] (a) WBC 6.5 x10^3/UL 4.0- 10.0 RBC 4.74 x10^6/UL 3.93-6.00 HGB 13.4 g/dL 12.0-17.0 HCT 39 % 35-50 MCV 82.5 fL 80.0-95.0 MCH 28.3 pg 25.6-32.2 MCHC 34.3 g/dL 32.2-36.0 RDW-CV 12.9 % 11.6-14.4 PLT 236 x10^3/UL 163-400 MPV 9.6 fL 9.4-12.4 Mat# 2.87 x10^3/UL 1.56-6.13 Lymph# 2.58 x10^3/UL 1.18-3.74 [place]# 0.37 x10^3/UL 0.24-0.82 Eos # 0.6 x10^3/UL High 0.0-0.5 Baso # 0.08 x10^3/UL 0.01-0.08 Mat% 43.9 % 34.0-70.0 Lymph % 39.5 % 20.0-52.0 [place]% 5.7 % 5.0-12.0 Eos% 9.2 % High 0.7-7.0 Baso% 1.2 % 0.1-1.2 Ua - Micro ([facility]) 06/25/2017 [facility] Medicine Appearance CLEAR (607)- - Color YELLOW Glucose, Urine ([facility]ma/CMC/CTX) NEG Bilirubin NEG Ketones NEG SP Grav 1.015 Blood NEG PH 7.0 Protein NEG Urobil 0.2 Nitrite NEG Leukocytes ([facility]/CMC/Centrex) NEG Hyaline - /Lpf Granular - /Lpf WBC ([facility]) - RBC - Mucus - /Lpf Epith OCC /Lpf # Bacteria TRACE /Hpf # Amorphous - /Lpf Crystals, Fluid (Fma/CMC/CTX) - Z#Comments - Urine ([facility]ma) 06/25/2017 [facility] Medicine SP Grav 1.015 (607)- - Urine, ([facility]ma/CMC/CTX) NEG Urine Culture And 06/25/2017 [facility] Urine Culture SEE RESULT 3 Sensitivities BELOW Comprehensive 06/02/2017 [facility] (a) Sodium 137 mEq/L 134-149 Metabolic Prof Potassium 4.7 mEq/L 3.6-5.5 Chloride 99 mEq/L 94-112 Carbon Dioxide 26 mEq/L 21-32 Glucose 106 mg/dL High 70-105 BUN 11 mg/dL 6-26 Creatinine 0.8 mg/dL 0.6-1.4 BUN/Creat Ratio 13.8 CALC 8.0-36.0 Calcium 9.5 mg/dL 8.6-10.2 Total Protein 7.5 g/dL 6.4-8.3 Albumin 4.2 g/dL 3.8-5.5 Globulin 3.3 g/dL 2.0-4.8 A/G Ratio 1.3 CALC 0.6-2.3 Alk. Phosphatase 49 U/L 30-110 Alt (SGPT) 65 U/L High 7-35 Ast (Sgot) 43 U/L High 5-34 Total Bilirubin 0.7 mg/dL 0.2-1.3 GFR Non- >60 ml/min/1.73m^ >=60 GFR >60 ml/min/1.73m^ >=60 Lipid Profile 06/02/2017 [facility] (a) Cholesterol 197 mg/dL 120- 200 Triglycerides 142 mg/dL 30-200 HDL Cholesterol 45 mg/dL 30-85 LDL (Calculated) 124 CALC 0-129 VLDL Cholesterol 28 mg/dL 0-50 HDL Risk Factor 4.4 CALC 0.0-4.4 Laboratory test 06/02/2017 [facility] HCV AB non-reactive non- reactive finding (607)- - Complete Blood 03/15/2017 [facility] (a) WBC 8.9 x10^3/UL 3.6-9.6 Count RBC 4.79 x10^6/UL 3.90-5.70 HGB 14.1 g/dL 12.1-17.2 HCT 42 % 36-50 MCV 87.0 fL 82.2-97.4 MCH 29.4 pg 27.6-33.3 MCHC 33.9 g/dL 33.0-35.5 RDW 14.4 % High 11.6-13.7 PLT 283 x10^3/UL 150-400 MPV 7.8 fL 7.4-10.4 Gran # 6.3 x10^3/UL 1.5-7.2 Lymph# 2.2 x10^3/UL 0.7-4.9 [place]# 0.4 x10^3/UL 0.1-0.9 Gran % 70.2 % 42.2-75.2 Lymph % 25.0 % 20.5-51.1 [place]% 4.8 % 1.7-9.3 Comprehensive Metabolic 03/15/2017 Tye Smith ([facility]) Sodium 134 mEq/L 134-149 4 Prof Potassium 3.7 mEq/L 3.6-5.5 Chloride 99 mEq/L 94-112 Carbon Dioxide 24 mEq/L 21-32 Glucose 100 mg/dL 70-105 BUN 11 mg/dL 6-26 Creatinine 0.8 mg/dL 0.6-1.4 BUN/Creat Ratio 13.8 CALC 8.0-36.0 Calcium 9.4 mg/dL 8.6-10.2 Total Protein 8.0 g/dL 6.4-8.3 Albumin 4.8 g/dL 3.8-5.5 Globulin 3.2 g/dL 2.0-4.8 A/G Ratio 1.5 CALC 0.6-2.3 Alk. Phosphatase 42 U/L 30-110 Alt (SGPT) 105 U/L High 7-35 5 Ast (Sgot) 67 U/L High 5-34 6 Total Bilirubin 0.7 mg/dL 0.2-1.3 GFR Non- >60 ml/min/1.73m^ >=60 GFR >60 ml/min/1.73m^ >=60 Lipid Profile 03/15/2017 [facility] ([facility]) Cholesterol 204 mg/dL High 120-200 Triglycerides 141 mg/dL 30-200 HDL Cholesterol 57 mg/dL 30-85 LDL (Calculated) 119 CALC 0-129 VLDL Cholesterol 28 mg/dL 0-50 HDL Risk Factor 3.6 CALC 0.0-4.4 Laboratory test 03/15/2017 [facility] ([facility]) TSH 1.79 mIU/L 0.50- 6.00 finding Ua - Micro ([facility]) 03/15/2017 [facility] Appearance CLEAR (607)- - Color YELLOW Glucose, Urine ([facility]/CMC/CTX) NEG Bilirubin NEG Ketones TRACE SP Grav 1.015 Blood NEG PH 6.0 Protein NEG Urobil 0.2 Nitrite NEG Leukocytes ([facility]/CMC/[facility]) SMALL # Hyaline - /Lpf Granular - /Lpf WBC ([facility]) 15-20 # RBC 0-1 # Mucus (Fma/CBC/Centrex) - /Lpf Epith FEW /Lpf # Bacteria 1+ /Hpf # Amorphous ([facility]ma/CMC/[facility]rex) - /Lpf Crystals, Fluid (Fma/CMC/CTX) - Z#Comments - 1 1 sst 2 Negative: < 0.8 Indeterminate: 0.8 - 0.9 Positive: > 0.9 The CDC recommends that a positive HCV antibody result be followed up with a HCV Nucleic Acid Amplification test (537284). 3 SEE RESULT BELOW Name: NAZANIN MEDLEY : [address]: Marcus Treviño MD Acct: [id number] Unit: [id number] AGE: 27 Location: [facility] Re06/25/17 SEX: F Status: REG REF SPEC: [id number] ELIZABETH: 06/25/[address]: Marcus Treviño MD REQ: [id number] RECD: 06/25/17 STATUS: COMP _ SOURCE: URINE SPDESC: ORDERED: Urine Culture COMMENTS: [id number] 1URINE VACUTAINER Urine Source: Random Procedure Result Reported Site Urine Culture Final 06/27/17- 08 ML No growth of clinically significant organisms * ML - Main Lab . END OF REPORT DEPARTMENT OF PATHOLOGY, [address], [place], [place] [address] Ashwin Li M.D. Director [facility] # [id number] RESULTS VERIFIED BY REPEAT ANALYSIS 5 RESULTS VERIFIED BY REPEAT ANALYSIS 6 RESULTS VERIFIED BY REPEAT ANALYSIS Procedures Date Code Description Status 12/09/2017 58258 Finger Or Heel Stick Completed 09/02/2017 75014 Electrocardiogram Complete Completed 05/05/2017 99078 Blood Pressure Monitoring Completed 03/03/2017 14618 Brief Emotional/Behav Assessment W/ Scoring Doc Per Completed Standard Inst Encounters Type Date Location Provider Dx Diagnosis Office Visit 03/02/2018 [facility] Office Deana Gage, I10 Essential ( primary) 11:00a M.D. hypertension K76.0 Fatty (change of) liver, not elsewhere classified E66.9 Obesity, unspecified R73.01 Impaired fasting glucose F32.1 Major depressive disorder, single episode, moderate Office Visit 12/14/2017 8:00a [facility] Office Deana Gage, I10 Essential (primary) M.D. hypertension F32.1 Major depressive disorder, single episode, moderate K76.0 Fatty (change of) liver, not elsewhere classified E66.9 Obesity, unspecified Office Visit 11/18/2017 10:20a [facility] Office Christopher Lozano J01.90 Acute sinusitis, Cate Yi unspecified J30.2 Other seasonal allergic rhinitis Office Visit 10/05/2017 9:00a [facility] Office Ashely I10 Essential ( primary) [place], Afnp-C hypertension R94.5 Abnormal results of liver function studies R73.9 Hyperglycemia, unspecified F32.1 Major depressive disorder, single episode, moderate Office Visit 09/02/2017 1:15p 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 Office Deana Gage, F32.1 Major depressive M.D. disorder, single episode, moderate I10 Essential (primary) hypertension R94.5 Abnormal results of liver function studies Office Visit 05/15/2017 10:40a Main Office Deana Gage, F32.1 Major depressive M.D. disorder, single episode, moderate I10 Essential (primary) hypertension Office Visit 05/04/2017 1:15p [facility] Office Deana Too, R03.0 Elevated M.D. blood-pressure reading, w/o diagnosis of htn Office Visit 04/20/2017 3:50p [facility] Office Deana Too, F32.1 Major depressive M.D. disorder, single episode, moderate R03.0 Elevated blood-pressure reading, w/o diagnosis of htn R94.5 Abnormal results of liver function studies Office Visit 03/03/2017 4:00p [facility] Office Deana Gage, Z13.9 Encounter for M.D. screening, unspecified Z00.00 Encntr for general adult medical exam w/o abnormal findings F32.1 Major depressive disorder, single episode, moderate R03.0 Elevated blood-pressure reading, w/o diagnosis of htn R82.99 Other abnormal findings in urine Plan of Treatment Future Appointment(s):05/18/2018 4:00 pm - Deana Gage M.D. at [facility] [id number]/29/2018 - Deana Gage M.D.I10 Essential (primary) hypertensionComments:The patient will continue to monitor blood pressure and let me know the blood pressure results if there are readings persistently above 140/90. Goal blood pressure is less than 130/80. Recommend low salt/cardiac diet such as the Mediterranean diet and routine exercise at least 30 minutes a day.R73.01 Impaired fasting glucoseComments:Counseled on heart healthy diet and exercise including limiting carbs and portion control and at least 30 minutes of physical activity daily. Consider Mediterranean diet as a guide for healthy eating. A1c> 6.5 is diagnostic of [id number] HeadacheNew Medication: Acetaminophen-Codeine #3 300-30 mg - 1-2 tab by mouth every 6 hours as neededRizatriptan Benzoate 10 mg - 1 tab by mouth at onset migraine can repeat 2 hours later monthly max 15Comments:possible migraine, trial t3 for severe pain , maxalt prnReviewed adverse side effects of medication. Advised to call the office if experiencing symptoms. Patient verbalized understanding. Reviewed warning signs and symptoms. Reasons to return to office or proceed to emergency room discussed including but not limited to no improvement or worsening of symptoms. Advised to call the office for any questions or concerns. Patient verbalized understanding. add claritin or zyrtec with Singulair to help with ear pressureAllComments:~B_~U_Medication Management~b_~u_ Patient Understands medications she's taking? Yes No Are there Barriers to Adherence? Yes No Has the patient been asked about herbal supplements and therapies, and OTC meds? Yes No
--- OUTSIDE RECORDS SUMMARY | 2018-03-31 17:09 | XMS REPORT ---
:1990 External Reference #:[id number] Author Organization [facility] Address [address] [place] [address] Phone [phone] Care Team Providers Name Role Phone Deana Gage M.D. Care Team Information Integrity Specialist Unavailable Deana Gage M.D. Primary Care Physician Unavailable Payers Type Date Identification Numbers Payment Provider Subscriber Commercial Effective: Policy Number: BC/BS Of JUSTICE Nazanin Medley 2016 [id number] PayID: [id number] [place] [id number] Problems Date Description Provider Status Onset: 03/03/2017 Moderate major depression, single Deana Gage M.D. Active episode Onset: 03/15/2017 Obesity Deana Gage M.D. Active Onset: 06/02/2017 Essential hypertension Deana Gage M.D. Active Onset: 06/02/2017 Liver function tests abnormal Deana Gage M.D. Active Onset: 03/02/2018 Impaired fasting glycaemia Deana Gage M.D. Active Onset: 11/18/2017 Allergic rhinitis Christopher Yi M.D. Active Onset: 11/18/2017 Acute sinusitis Christopher Yi M.D. Active Onset: 03/15/2017 Elevated blood-pressure reading Deana Gage M.D. Inactive without diagnosis of hypertension Inactive: 06/02/2017 Family History Date Family Member(s) Problem(s) Comments Father Hyperlipidemia Father Gastroesophageal Reflux Disease (GERD) Mother Irritable Bowel Syndrome First Sister Lyme Disease Paternal Grandfather Lung Cancer Paternal Grandmother Breast Cancer Paternal Grandmother PA Paternal Grandmother Fatty liver Maternal Grandfather Asthma Maternal Grandmother Breast Cancer Social History Type Date Description Comments Marital Status Single Lives With Alone Occupation [employer] Cigarette Use Never Smoked Cigarettes ETOH Use Social Alcohol Exercise Type/Frequency Does not exercise Allergies, Adverse Reactions, Alerts Date Description Reaction Status Severity Comments 03/03/2017 Amoxicillin active hives Medications Medication Date Status Form Strength Qnty SIG Indications Ordering Provider Buspirone HCL 03/02 Active Tablets 10mg 180ta 1 tab bid bs Cate Gage Bupropion HCL ER 02/07 Active Tablets 100mg 90tab take one () ER 12HR s by mouth [place], once daily M.DNoah Propranolol HCL 12/28 Active Tablets 20mg 90tab 1 tab by I10 s mouth [place], every day M.D. Montelukast Sodium 11/18 Active Tablets 10mg 30tab 1 by mouth J30.2 Christopher Lozano s every day [facility], at for M.D. allergies Buspirone HCL 02/07 Hx Tablets 5mg 90tab 1 tab by s mouth [place], - three M.D. 03/02 times day as needed Fluoxetine HCL 02/07 Hx Capsules 10mg 30cap 4 tabs x 3 F32.1 s days, then [place], - 3 tabs x 3 M.D. 03/02 days, 2 tabs x 3 days then 1 tab x 3 days then stop Fluoxetine HCL 12/28 Hx Capsules 20mg 90cap 1 by mouth F32.1 s every day [place], - M.D. 02/07 Fluoxetine HCL 12/14 Hx Capsules 10mg 30cap 1 by mouth F32.1 s every day [place], - M.D. 12/28 Hydroxyzine HCL 12/14 Hx Tablets 25mg 60tab 1-2 tabs F32.1 s at bedtime [place], - as needed M.D. 02/07 Levofloxacin 11/18 Hx Tablets 500mg 10tab 1 by mouth J01.90 Christopher Lozano s every day [place], - M.D. 12/14 Work Note 11/18 Hx seen today Christopher Lozano for [place], - medical M.D. 12[facility] and should not return to work today or tomorrow. 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 09/01 twice a day Lisinopril 05/15 Hx Tablets 20mg 30tab 1 by mouth I10 Deana s every day [place], - M.D. 09/01 Amlodipine 05/05 Hx Tablets 5mg 30tab 1 by mouth Deana Besylate s every day [place] - M.D. 05/15 Bupropion HCL ER 05/03 Hx Tablets 150mg 30tab take 1 Ashely (XL) ER 24HR s tablet by Etienne, - mouth Afnp-C 11/04 Bupropion HCL ER 04/20 Hx Tablets 300mg 90tab 1 by mouth F32.1 Deana (XL) ER 24HR s every day [place], - M.D. 05/03 Amlodipine 04/15 Hx Tablets 10mg 30tab 1 by mouth Deana Besylate s every day , - M.D. 04/19 Hydrochlorothiazid 03/15 Hx Tablets 12.5mg 90tab 1 by mouth Deana e s every day [place] - M.D. 04/15 Bupropion HCL ER 03/03 Hx Tablets 150mg 30tab 1 by mouth F32.1 Deana (XL) ER 24HR s every day Too - M.DNoah 04/20 Vitamin B12 Hx Tablets 1000mcg 1 by mouth Unknown /0000 ER every day - 04/19 Cranberry Hx Tablets 450mg 1 tab by Unknown /0000 mouth - Daily 10/05 Medications Administered in Office Medication Date Status Form Strength Qnty SIG Indications Ordering Provider Brief Administered Injection Deana Emotional/Beha lucy Turner MGhazal W/ Scoring Doc Per Standard Inst Vital Signs Date Vital Result Comment 03/02/2018 BP Systolic 150 mmHg BP Diastolic 82 mmHg BP Systolic Recheck 130 mmHg BP Diastolic Recheck 80 mmHg Heart Rate 64 /min Body Temperature 98.1 F Respiratory Rate 16 /min Weight 301.00 lb 12/14/2017 BP Systolic 148 mmHg BP Diastolic 98 mmHg Heart Rate 68 /min Body Temperature 98.3 F Respiratory Rate 16 /min Weight 293.00 lb 11/18/2017 BP Systolic 124 mmHg BP Diastolic 86 mmHg Heart Rate 64 /min Body Temperature 98.3 F Respiratory Rate 16 /min Height 68 inches 5'8" Weight 284.00 lb BMI (Body Mass Index) 43.2 kg/m2 10/05/2017 BP Systolic 128 mmHg BP Diastolic 88 mmHg Heart Rate 66 /min Body Temperature 97.9 F Respiratory Rate 18 /min Height 68 inches 5'8" Weight 290.00 lb BMI (Body Mass Index) 44.1 kg/m2 09/02/2017 BP Systolic 174 mmHg BP Diastolic 102 mmHg Heart Rate 78 /min Body Temperature 97.9 F Height 68 inches 5'8" Weight 299.00 lb BMI (Body Mass Index) 45.5 kg/m2 06/02/2017 BP Systolic 150 mmHg BP Diastolic 90 mmHg BP Systolic Recheck 150 mmHg BP Diastolic Recheck 88 mmHg Heart Rate 72 /min Respiratory Rate 16 /min Height 68 inches 5'8" 05/15/2017 BP Systolic 170 mmHg BP Diastolic 108 mmHg Heart Rate 102 /min Body Temperature 97.9 F Respiratory Rate 16 /min Height 68 inches 5'8" Weight 289.12 lb BMI (Body Mass Index) 44.0 kg/m2 04/20/2017 BP Systolic 158 mmHg BP Diastolic 108 mmHg Heart Rate 96 /min Body Temperature 97.7 F Height 68 inches 5'8" Weight 296.00 lb BMI (Body Mass Index) 45.0 kg/m2 03/03/2017 BP Systolic 170 mmHg BP Diastolic 100 mmHg Heart Rate 80 /min Body Temperature 97.9 F Respiratory Rate 16 /min Height 68 inches 5'8" Weight 304.00 lb BMI (Body Mass Index) 46.2 kg/m2 Results Test Date Test Result H/L Range Note Laboratory test finding 12/09/2017 Hemoglobin A1c (Fma) 5.3 % % 4.1-5.7 Glucose Serum 119 High 70-105 Hepatitis Panel, Acute 09/21/2017 Hep A Ab, IgM Negative Negative 1 HBsAg Screen Negative Negative 1 Hep B Core Ab, IgM Negative Negative 1 Hep C Virus Ab 0.1 s/coratio 0.0-0.9 1, 2 Laboratory test finding 09/21/2017 Prolactin 5.9 ng/mL 4.8-23.3 1 LDH 241 IU/L High 119-226 1 Laboratory test finding 09/21/2017 Monospot (Fma/Centrex) negative Comprehensive Metabolic Prof 09/21/2017 Sodium 137 mEq/L 134-149 Potassium 4.6 mEq/L 3.6-5.5 Chloride 105 mEq/L [...] >=60 GFR >60 ml/min/1.73m^ >=60 Lipid Profile 09/21/2017 Cholesterol 221 mg/dL High 120-200 Triglycerides 193 mg/dL 30-200 HDL Cholesterol 53 mg/dL 30-85 LDL (Calculated) 129 CALC 0-129 VLDL Cholesterol 39 mg/dL 0-50 HDL Risk Factor 4.2 CALC 0.0-4.4 CBC Electronic a 09/02/2017 WBC 6.5 x10^3/UL 4.0-10.0 RBC 4.74 x10^6/UL 3.93-6.00 HGB 13.4 g/dL 12.0-17.0 HCT 39 % 35-50 MCV 82.5 fL 80.0-95.0 MCH 28.3 pg 25.6-32.2 MCHC 34.3 g/dL 32.2-36.0 RDW-CV 12.9 % 11.6-14.4 PLT 236 x10^3/UL 163-400 MPV 9.6 fL 9.4-12.4 Mta# 2.87 x10^3/UL 1.56-6.13 Lymph# 2.58 x10^3/UL 1.18-3.74 Emmet# 0.37 x10^3/UL 0.24-0.82 Eos # 0.6 x10^3/UL High 0.0-0.5 Baso # 0.08 x10^3/UL 0.01-0.08 Mat% 43.9 % 34.0-70.0 Lymph % 39.5 % 20.0-52.0 Emmet% 5.7 % 5.0-12.0 Eos% 9.2 % High 0.7-7.0 Baso% 1.2 % 0.1-1.2 Laboratory test finding 09/02/2017 Vitamin B-12 765 pg/mL 230-1050 TSH 2.89 mIU/L 0.50-6.00 Free T4 0.97 ng/dL 0.75-1.54 Comprehensive Metabolic Prof 09/02/2017 Sodium 134 mEq/L 134-149 Potassium 3.7 mEq/L 3.6-5.5 Chloride 97 mEq/L [...] >60 ml/min/1.73m^ >=60 GFR >60 ml/min/1.73m^ >=60 Ua - Micro (Fma) 06/25/2017 Appearance CLEAR Color YELLOW Glucose, Urine (Fma/CMC/CTX) NEG Bilirubin NEG Ketones NEG SP Grav 1.015 Blood NEG PH 7.0 Protein NEG Urobil 0.2 Nitrite NEG Leukocytes (Fma/CMC/Centrex) NEG Hyaline - /Lpf Granular - /Lpf WBC (Fma,Centrex) - RBC - Mucus - /Lpf Epith OCC /Lpf Bacteria TRACE /Hpf Amorphous - /Lpf Crystals, Fluid (Fma/CMC/CTX) - Z#Comments - Urine (Fma) 06/25/2017 SP Grav 1.015 Urine, (Fma/CMC/CTX) NEG Urine Culture And 06/25/2017 Urine Culture SEE RESULT BELOW 3 Sensitivities Comprehensive Metabolic Prof 06/02/2017 Sodium 137 mEq/L 134-149 Potassium 4.7 mEq/L 3.6-5.5 Chloride 99 mEq/L [...] GFR >60 ml/min/1.73m^ >=60 Lipid Profile 06/02/2017 Cholesterol 197 mg/dL 120-200 Triglycerides 142 mg/dL 30-200 HDL Cholesterol 45 mg/dL 30-85 LDL (Calculated) 124 CALC 0-129 VLDL Cholesterol 28 mg/dL 0-50 HDL Risk Factor 4.4 CALC 0.0-4.4 Laboratory test finding 06/02/2017 HCV AB non-reactive non-reactive Complete Blood Count 03/15/2017 WBC 8.9 x10^3/UL 3.6-9.6 RBC 4.79 x10^6/UL 3.90-5.70 HGB 14.1 g/dL 12.1-17.2 HCT 42 % 36-50 MCV 87.0 fL 82.2-97.4 MCH 29.4 pg 27.6-33.3 MCHC 33.9 g/dL 33.0-35.5 RDW 14.4 % High 11.6-13.7 PLT 283 x10^3/UL 150-400 MPV 7.8 fL 7.4-10.4 Gran # 6.3 x10^3/UL 1.5-7.2 Lymph# 2.2 x10^3/UL 0.7-4.9 Emmet# 0.4 x10^3/UL 0.1-0.9 Gran % 70.2 % 42.2-75.2 Lymph % 25.0 % 20.5-51.1 Emmet% 4.8 % 1.7-9.3 Comprehensive Metabolic Prof 03/15/2017 Sodium 134 mEq/L 134-149 4 Potassium 3.7 mEq/L 3.6-5.5 Chloride 99 mEq/L [...] GFR >60 ml/min/1.73m^ >=60 Lipid Profile 03/15/2017 Cholesterol 204 mg/dL High 120-200 Triglycerides 141 mg/dL 30-200 HDL Cholesterol 57 mg/dL 30-85 LDL (Calculated) 119 CALC 0-129 VLDL Cholesterol 28 mg/dL 0-50 HDL Risk Factor 3.6 CALC 0.0-4.4 Laboratory test finding 03/15/2017 TSH 1.79 mIU/L 0.50-6.00 Ua - Micro (Fma) 03/15/2017 Appearance CLEAR Color YELLOW Glucose, Urine (Fma/CMC/CTX) NEG Bilirubin NEG Ketones TRACE SP Grav 1.015 Blood NEG PH 6.0 Protein NEG Urobil 0.2 Nitrite NEG Leukocytes (Fma/CMC/Centrex) SMALL Hyaline - /Lpf Granular - /Lpf WBC (Fma,Centrex) 15-20 RBC 0-1 Mucus (Fma/CBC/Centrex) - /Lpf Epith FEW /Lpf Bacteria 1+ /Hpf Amorphous (Fma/CMC/Centrex) - /Lpf Crystals, Fluid (Fma/CMC/CTX) - Z#Comments - 1 1 sst 2 Negative: < 0.8 Indeterminate: 0.8 - 0.9 Positive: > 0.9 The CDC recommends that a positive HCV antibody result be followed up with a HCV Nucleic Acid Amplification test (815415). 3 SEE RESULT BELOW Name: NAZANIN MEDLEY : [address]: Marcus Treviño MD Acct: [id number] Unit: [id number] AGE: 27 Location: [facility] Re06/25/17 SEX: F Status: REG REF SPEC: [id number] ELIZABETH: 06/25/[address]: Marcus Treviño MD REQ: [id number] RECD: 06/25/17 STATUS: COMP _ SOURCE: URINE [facility]: ORDERED: Urine Culture COMMENTS: [id number] 1URINE VACUTAINER Urine Source: Random Procedure Result Reported Site Urine Culture Final 06/27/17- 801 ML No growth of clinically significant organisms * ML - Main Lab . END OF REPORT DEPARTMENT OF PATHOLOGY, [address] [place] [address] Ashwin Li M.D. Director [facility] # [id number] 4 RESULTS VERIFIED BY REPEAT ANALYSIS 5 RESULTS VERIFIED BY REPEAT ANALYSIS 6 RESULTS VERIFIED BY REPEAT ANALYSIS Procedures Date CPT Code Description Status 12/09/2017 87031 Finger Or Heel Stick Completed 09/02/2017 96988 Electrocardiogram Complete Completed 05/05/2017 06874 Blood Pressure Monitoring Completed 03/03/2017 53929 Brief Emotional/Behav Assessment W/ Scoring Doc Per Completed Standard Inst Encounters Type Date Location Provider CPT E/M Dx Office Visit 12/14/2017 8:00a [facility] Deana Gage M.D. 79595 I10 F32.1 K76.0 E66.9 Office Visit 11/18/2017 10:20a [facility] Office Christopher Yi M.D. 61647 J01.90 J30.2 Office Visit 10/05/2017 9:00a [facility] Office Ashely Clifton, Afnp-C 98675 I10 R94.5 R73.9 F32.1 Office Visit 09/02/2017 1:15p [facility] Office Kimberly Devinebhart, NECK BAND OPERATOR 02050 R20.0 I10 Office Visit 06/02/2017 8:15a [facility] Deana Gage M.D. 34473 F32.1 I10 R94.5 Office Visit 05/15/2017 10:40a [facility] Office Deana Gage M.D. 11278 F32.1 I10 Office Visit 05/04/2017 1:15p [facility] Office Deana Gage M.D. 88701 R03.0 Office Visit 04/20/2017 3:50p [facility] Office Deana Gage M.D. 17074 F32.1 R03.0 R94.5 Office Visit 03/03/2017 4:00p [facility] Office Deana Gage M.D. 26586 Z13.9 Z00.00 F32.1 R03.0 R82.99 Plan of Care Future Appointment(s):03/03/2018 8:45 am - Deana Gage M.D. at [facility] Rprwqa6405/18/2018 4:00 pm - Deana Gage M.D. at [facility] [id number]/02/2018 - Deana Gage M.D.I10 Essential (primary) hypertensionNew Labs:Comp Metabolic- ALL Lab CompaniLipid Panel-ALL Lab CompaniesCBC Electronic-ALL Lab CompaniFree T4 (Fma/labcorp)TSH (Fma/CMC/[facility])B12 (Fma/CMC/Centrex)Vitamin D, 25Hydroxy( Fma/LCComments:The patient will continue to monitor blood pressure and let me know the blood pressure results if there are readings persistently above 140/ 90. Goal blood pressure is less than 130/80. Recommend low salt/cardiac diet such as the Mediterranean diet and routine exercise at least 30 minutes a day.Follow up:fasting labs 3 ezfwcuI06.0 Fatty (change of) liver, not elsewhere classifiedComments:discussed diet and tpafszqbT08.9 Obesity, unspecifiedNew Labs :Comp Metabolic-ALL Lab CompaniLipid Panel-ALL Lab [facility] Electronic-ALL Lab CompaniFree T4 (Fma/[facility])TSH (Fma/CMC/[facility])Hemoglobin A1c (Fma) Comments:Counseled on heart healthy diet such as Mediterranean diet. Eat protein and vegetables first then carbohydrates last. Get at least 150 minutes of moderate aerobic activity or 75 minutes of vigorous aerobic activity a week, or a combination of moderate and vigorous activity. General goal of 30 minutes of physical activity a day. seeing seqmcfgmxgwlD45.01 Impaired fasting glucoseNew Labs:Hemoglobin A1c (Fma)Comments:Counseled on heart healthy diet and exercise including limiting carbs and portion control and at least 30 minutes of physical activity daily. Consider Mediterranean diet as a guide for healthy eating. A1c> 6.5 is diagnostic of voefigsmO75.1 Major depressive disorder, single episode, moderateComments:improved on bupropion and buspar, call if symptoms worsenAllNew Medication:Buspirone HCL 10 mgComments:~B_~U_ Medication Management~b_~u_ Patient Understands medications she's taking? Yes No Are there Barriers to Adherence? Yes No Has the patient been asked about herbal supplements and therapies, and OTC meds? Yes No
[2018-03-31 17:31] LABS: ABS Basophils 0.1 10^3/ul (0-0.2); ABS Eosinophils 0.8 10^3/ul (0-0.6); ABS Lymphocytes 2.7 10^3/ul (1.0-4.8); ABS Monocytes 0.6 10^3/ul (0-0.8); ABS Neutrophils 5.6 10^3/ul (1.5-7.7); ABS Nucleated RBC 0 10^3/ul; Eosinophil % 8.4 %; Hematocrit 39 % (35-47); Hemoglobin 13.4 g/dl (12.0-16.0); Mean Corpuscular HGB Conc 34 g/dl (31-36); Mean Corpuscular Hemoglobin 29 pg (27-31); Mean Corpuscular Volume 85 fL (80-97); Nucleated Red Blood Cells % 0.1; Platelet Count 270 10^3/ul (150-450); Red Blood Count 4.63 10^6/ul (4.00-5.40); Red Cell Distribution Width 14 % (10.5-15); White Blood Count 9.8 10^3/ul (3.5-10.8)
[2018-03-31 17:54] LABS: Albumin 4.4 g/dL (3.2-5.2); Albumin/Globulin Ratio 1.2 (1-3); BUN/Creatinine Ratio 13.2 (8-20); C Reactive Protein 7.66 mg/L (<8.01); Calcium 9.6 mg/dL (8.6-10.3); EGFR African American 89.1 (>60); EGFR Non-African American 73.6 (>60); Globulin 3.6 g/dL (2-4); Potassium 4.6 mmol/L (3.5-5.0); Total Bilirubin 0.4 mg/dL (0.2-1.0)
[2018-03-31] MEDS ORDERED: Lidocaine 1% INJ* 10 MG/ML 30 ML SDV INJ ONE (17:58)
[2018-03-31 18:15] LABS: Activated Partial Thrombo Time 29.9 seconds (26.0-36.3); INR 0.97 (0.77-1.02)
[2018-03-31 19:02] LABS: TSH (Thyroid Stimulating Horm) 2.28 mcIU/mL (0.34-5.60)
[2018-03-31 19:06] LABS: Free T4 0.63 ng/dL (0.61-1.12)
--- NOTE | 2018-03-31 20:25 | CONSULT ---
Consult Consult: Ms. Medley presented with headache. MRV head is inconclusive and showed a questionable right nonocclusive transverse sinus thrombosis. LP done at bedside with opening pressure of 37 cm H2O (ELEVATED). Closing pressure was 18 The diagnosis here is most likely idiopathic, intracranial, hypertension in an obese young female with no risk factor for hypercoagulable state. Repeat MRV head WITH contrast for better imaging quality. Started Acetazolamide 250 mg PO twice daily. Complete consult note dictated.
[2018-03-31 20:32] LABS: Body Fluid Source Cerebral Spinal
--- NOTE | 2018-03-31 20:38 | ED ---
Progress - Progress Note Progress Note: Patient was signed out from Dr. Oliver to Dr. Douglas upon physician shift change pending consult with Dr. Almazan and disposition. Course/Dx - Course Course Of Treatment: Patient was signed out from Dr. Oliver to Dr. Douglas upon physician shift change pending consult with Dr. Almazan and disposition. Discussed pt care with Dr. Almazan, neurologist, who recommended pt be discharged with dx idiopathic intracranial hypertension. Pt will be discharged with follow up from PCP. Pt is agreeable with this plan. - Diagnoses Provider Diagnoses: Idiopathic intracranial hypertension - Provider Notifications Discussed Care Of Patient With: Chirag Almazan Time Discussed With Above Provider: 20:40 Instructed by Provider To: Other - After seeing pt in ED, Dr. Almazan recommended pt be discharged with dx idiopathic intracranial hypertension Discharge - Sign-Out/Discharge Documenting (check all that apply): Patient Departure - discharge - Discharge Plan Condition: Good Disposition: HOME Patient Education Materials: Idiopathic Intracranial Hypertension (ED) Referrals: Chirag Almazan MD [Medical Doctor] - Additional Instructions: Take the medication Dr. Almazan prescribed as directed and followup with him per his instructions. - Billing Disposition and Condition Condition: GOOD Disposition: Home - Attestation Statements Document Initiated by Scribe: Yes Documenting Scribe: Kimberly Shane Provider For Whom Koby is Documenting (Include Credential): Deniz Douglas MD Scribe Attestation: Kimberly Garcia, ambered for Deniz Douglas MD on 04/01/18 at 0015. Scribe Documentation Reviewed: Yes Provider Attestation: The documentation as recorded by the Kimberly amaro accurately reflects the service I personally performed and the decisions made by Deniz danielle MD Status of Scribe Document: Viewed
[2018-03-31 20:49] LABS: CSF Glucose 66 mg/dL (40-70)
[2018-03-31] MEDS ORDERED: acetaZOLAMIDE TAB* 250 MG PO SCH (21:00)
[2018-03-31 21:24] VITALS: BP 166/99
[2018-03-31 21:38] LABS: Body Fluid Mono 3 %
--- NOTE | 2018-03-31 23:40 | CONS ---
NEUROLOGY CONSULTATION NOTE: DATE OF CONSULT: 03/31/18 - EMERGENCY DEPT. CONSULTING PROVIDERS: Dr. Hilario Begum and Dr. Deniz Oliver. REASON FOR CONSULT: Headache. CHIEF COMPLAINT: Headache. HISTORY OF PRESENT ILLNESS: Nazanin Medley is a pleasant 27-year-old right- handed obese female whom I had the pleasure of working with in the Neurology Clinic, [facility], who had developed a nearly gradual insidious headache of approximately 8-10 days in duration. The headache is constant. The headache was described as holocephalic, initially was only in the frontal region bilaterally, but now it is radiating to the left side of the head and closely to the left cervical region. The pain is dull and pressure with occasional sharp sensation. Position does not trigger or worsen the headache. Coughing, straining, or sneezing does not exacerbate the pain. The patient denied any double vision or blurry vision. She did have a period last week where she felt like her peripheral vision was blurred. That lasted for 3 days and now completely resolved. She has been taking 1 Tylenol and codeine and 2 triptans, with no relief. She saw Dr. Begum at the office yesterday who assessed her headache as well as he was concerned that she may have papilledema. She was sent urgently to Ophthalmology, who noticed that there may be early findings of papilledema. The patient denied any photo or phonophobia. She feels nauseated with the headache. She denied any tinnitus. She denied any oral contraceptive use, antiacne agents, and has no history of DVTs or PEs. She has no family history of hypercoagulable state. She does not really have any history of migraines, but does rarely have headaches. The patient underwent an MRI of the brain with and without contrast today, 03/31. The MRI of the brain with and without contrast showed no evidence of any large tumor. The sella was reported to be normal, but there was some questionable slight empty sella. However, there is a filling defect of the right transverse- sigmoid junction that appears more extensive than would be expected for an arachnoid granulation, likely represents a nonocclusive thrombus. There was contrast given for the MRI of the brain that the MRV was done immediately following that, so the MRV was technically a contrasted study. I discussed these results with the mri ct tech as well as Dr. Heriberto. No further images were recommended. The patient underwent a lumbar puncture today that was done by myself which showed an opening pressure of 37 and a closing pressure of 18. Her CSF glucose was 66, CSF total protein is 43. She had other laboratory testing. Serum sodium was 135, potassium 4.6, chloride 100, carbon dioxide 29, anion gap 6, BUN 12, creatinine 0.91, vitamin B12 is 503, TSH is 2.28, free T4 is 0.63. WBC of 9.8, hemoglobin of 13, hematocrit of 39, platelet count of 270. The patient's headache is currently 7/10 in severity. She tolerated the lumbar puncture procedure well. PAST MEDICAL HISTORY: Hypertension, obesity, fatty liver, anxiety. PAST SURGICAL HISTORY: L4-L5 diskectomy. MEDICATIONS: 1. Propranolol 20 mg daily. 2. BuSpar 20 mg daily. She is not on any oral contraceptive pills. ALLERGIES: Amoxicillin. FAMILY HISTORY: Father suffers from GERD and hypertension. Mother has irritable bowel syndrome and hypertension. SOCIAL HISTORY: She denied any tobacco use. She is single. She lives alone. She has no children. She denied any excessive alcohol use. REVIEW OF SYSTEMS: A 14-point review of systems was obtained and otherwise negative, except for what was mentioned in the HPI. PHYSICAL EXAM: Vitals: Temperature of 97.4, pulse of 87, respiratory rate of 16, oxygen saturation of 96, blood pressure of 134/80. Initially, her blood pressure was extremely elevated when she came in, but she stated that she was nervous of the lumbar puncture and her blood pressure is down now. General: Well-nourished, well- developed obese female in no acute distress. Head: Normocephalic, atraumatic. Eyes: Conjunctivae/corneas are clear. Neck is supple and symmetrical with no carotid bruits. Lungs are clear to auscultation bilaterally. Cardiovascular: Regular rate and rhythm, with normal S1, S2. Extremities: Normal range of motion with no cyanosis. Skin: No skin lesions or laceration. Psych: Affect is broad and normal mood, easy to establish rapport. Neurological Examination: Mental Status: Awake, alert, oriented to person; place; time; and general circumstance. Speech and language including expression, naming, repetition, and comprehension were assessed and found to be normal. Cranial Nerves: Normal confrontation testing bilaterally. Pupils are mid range and reactive to light. Normal consensual response. Extraocular muscles are intact. No ptosis. Funduscopic examination revealed no venous pulsation. The disc margins are not well visualized. There is intact sensation to forehead, cheeks, and jaw region bilaterally. There is no facial droop. She is able to hear throughout the history process. Symmetrical palatal elevation. Normal strength against resistance. Tongue is symmetrical and midline with no atrophy or fasciculation. Motor Examination: No abnormal movement or pronator drift, 5/5 strength in the upper and lower extremities. Reflexes: 2+ throughout the upper and lower extremities. Sensation is intact to light touch throughout. Coordination: Normal finger-to- nose and rapid alternating movement good. Gait and station narrow based and normal stance and gait, no ataxia. ASSESSMENT AND RECOMMENDATIONS: Mrs. Nazanin Medley is a very pleasant 27-year- old obese female who has developed a headache for the past 8-10 days. She developed intermittent visual disturbance that have resolved. She was evaluated by Dr. Begum and Ophthalmology and both were concerned for increased intracranial pressure and papilledema. Her neurological examination is normal; however, she did have slight loss of the venous pulsation bilateral, concerning for papilledema. She underwent an MRI and MRV of the head. The MRI was with and without contrast; hence, the MRV study also had a sequence where contrast was seen. There was no mass lesions. However, there was a concern for possible nonocclusive thrombus in the right transverse sinus. A lumbar puncture was done this evening and showed a significantly elevated pressure of 37 cm H2O. The closing pressure was 18 cm H2O. The patient's headache did not significantly improve. The patient was started on Diamox 250 mg twice daily and recommended to increase the dose after 2 days to 250 mg 4 times a day. The side effects of Diamox were discussed with the patient and include, but are not limited to fatigue, malaise, taste change, nausea, vomiting, polyuria. We have decided not to proceed with any further imaging. The most likely diagnosis is benign intracranial hypertension (e.g., pseudotumor cerebri). I discussed this case with Dr. Louis, who did not recommend any repeat imaging, especially not repeating the MRV today. I reviewed the literature and there is evidence to suggest that changes with the transverse sinus, stenosis or possible nonocclusive thrombus, can be seen secondary to phenomenon in response to elevated intracranial pressure. Therefore, a reduction of the CSF pressure may reduce the compression to the vasculature and may resolve any changes that we see in the transverse sinus. Now, we cannot entirely exclude cerebral venous thrombosis, but given that it is nonocclusive, it is reassuring and does not require urgent evaluation. She would not be a candidate for anticoagulation therapy now since we have done the lumbar puncture. What I recommend is close monitoring. I would start out by evaluating the patient to see if she responds to the Diamox and consider repeating the MRV with contrast on Wednesday or Wednesday. This gives us some time to reduce the pressure with medication on top of the post-LP CSF reduction. If she continues to have headaches, headaches progress, or she develops other neurological signs, then urgent reevaluation is warranted. If she does respond to therapy, then no further imaging after obtaining the MRV would be recommended. I counseled the patient regarding the importance of exercise and weight loss to treat this condition. She verbalized understanding. She agreed to proceed with the less aggressive management and go home and monitor this closely, and if symptoms progress or worsen, will come back to the ER for further evaluation. I discussed most of these treatment recommendations and conclusion with Dr. Begum. The patient can be seen in the outpatient neurology clinic. TIME SPENT: I spent a total of 70 minutes, of which more than 50% was spent obtaining history, examining the patient, and arranging the treatment plan as mentioned above. [id number]/[facility] #: [id number] MTDD
== END 2018-03-31 21:54 | disposition home or self-care (01) ==
LOC: ED 16:52
DX: G93.2 Benign intracranial hypertension (principal); H53.8 Other visual disturbances; Z88.0 Allergy status to penicillin; R51 Headache
CPT/HCPCS: 36415; 80053; 82607; 82945; 84157; 84439; 84443; 85025; 85610; 85730; 86140; 87070; 87205; 87899; 89051; 96374; 99283; A9270-GY

== ENCOUNTER 2019-04-07 14:20 | Day surgery (SDC) | payer BC ==
[~2019-04-07 14:20] MED LIST changes: -Buffered Lidocaine 1% SYR 3ML* 3 ML/SYR SYRINGE INTRADERM ONE; +Buffered Lidocaine 1% SYRIN* 1 ML/SYRINGE INTRADERM ONE; -Famotidine IV* 10 MG/ML 2 ML (20 mg) IV ONE; +Lactated Ringers 1000 ML Bag* 1,000 ML IV SCH; -Morphine INJ* 2 MG/ML 1 ML CARPUJECT IV PRN; -PROCHLORPERAZINE INJ 5 MG/ML 2 ML VIAL IV PRN; +Sodium Citrate/Citric Acid* 15 ML UDC PO ONE; -fentaNYL* 50 MCG/ML 2 ML VIAL (100 MCG VIAL) IV PRN; -oxyCODONE/Acetamin 5/325 MG* TAB PO PRN
[2019-04-07] MEDS ORDERED: Sodium Citrate/Citric Acid* 15 ML UDC ONE (14:35)
[2019-04-07] MEDS ORDERED: Buffered Lidocaine 1% SYRIN* 1 ML/SYRINGE INTRADERM ONE (14:35)
[2019-04-07 14:53] VITALS: BP 149/84
[2019-04-07] MEDS ORDERED: Midazolam* 1 MG/ML 5 ML VIAL (5 MG) ONE (16:06)
[2019-04-07] MEDS ORDERED: Ondansetron INJ* 2 MG/ML VIAL ONE (16:20)
[2019-04-07] MEDS ORDERED: Propofol* 10 MG/ML 20 ML BTL ONE (16:20)
[2019-04-07] MEDS ORDERED: Lidocaine 2% PF * 5 ML VIAL ONE (16:21)
--- NOTE | 2019-04-07 23:37 | PRO ---
DATE: 04/07/19 REFERRING PHYSICIAN: Deana Gage MD PROCEDURE: Upper gastrointestinal endoscopy and antral biopsy with CLOtest. 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 Full record of that episode is not available. She has a history of morbid obesity and pseudotumor cerebri for which she has been on acetazolamide in the past. She was taking Vyvanse for a few months in the fall and stopped it in early February. She admits that she was overeating around [place] time, eating lots of high fat food. She was experiencing lots of heart burn. Pain increased and she was admitted to [facility], states she was still having some distress when she went home. Upper endoscopy there was said to show a small duodenal ulcer. Since discharge, she has been on buspirone, Effexor, propranolol 20 at bedtime, acetazolamide dose unspecified at bedtime, and pantoprazole 40 mg in the morning. She states that her abdomen has been quite comfortable over the last 2- 1/2 weeks. Right upper quadrant ultrasound showed hepatomegaly with steatosis and no gallstones. Informed consent was obtained with discussion with the patient's mother present. Monitored anesthesia is planned. She was positioned left side down and sedation administered by Dr. Stephens. EGD: Larynx - Narrow, symmetric views. Esophagus - easily entered; the mucosa is normal in the upper, mid, and lower esophagus with the EG junction at 38. Stomach - generally normal mucosa in the cardia, fundus, body, and antrum. No erosions were seen. Duodenum - the pylorus, bulb, and second through fourth portions appear normal. During withdrawal CLOtest obtained of gastric body. IMPRESSION: 1. Normal EGD. 2. History of heart burn - during a period of dietary indiscretion for a number of weeks in the fall - continue pantoprazole now until about 06/07/19 and then would consider tapering slowly. 3. History of pancreatitis - unseen gallstones, hypertriglyceridemia and structural abnormalities of the pancreas are all possibilities. The maximum known triglyceride level here at 387, does not rule out the possibility of much higher excursions at other times. 4. Pseudotumor cerebri - she had neurologic consultation and a hypercoagulable workup March 2018. Addendum: Clotest negative [id number]/[facility] #: [id number] MTDD
== END 2019-04-07 17:17 | disposition home or self-care (01) ==
LOC: OR 14:20
PROVIDERS: ATTEND Internal Medicine Gastroenterology
DX: K85.91 Acute pancreatitis with uninfected necrosis, unspecified (principal); R10.811 Right upper quadrant abdominal tenderness; E66.01 Morbid (severe) obesity due to excess calories; I34.1 Nonrheumatic mitral (valve) prolapse; G93.2 Benign intracranial hypertension; F41.9 Anxiety disorder, unspecified; R16.0 Hepatomegaly, not elsewhere classified; K76.0 Fatty (change of) liver, not elsewhere classified
CPT/HCPCS: 81025; 87077; A9270-GY; J2250; J2405; J2704